=== PATIENT | female | born 1970 | race Caucasian/White ===

== ENCOUNTER 2016-04-05 09:02 | Emergency (ER) | payer OTHER ==
[2016-04-05 09:19] VITALS: BP 166/95; PULSE 85; RESP 18; TEMP 98; O2SAT 94
--- NOTE | 2016-04-05 09:30 | UCPHY ---
H & P Time Seen by Provider: 04/05/16 09:17 Patient Type: Established HPI/ROS: HPI Right ankle swelling, right groin pain. 45-year-old female by private vehicle. This patient reports that she has had discomfort in her right mid inguinal area since Sunday. She also reports that she noticed that her right ankle seemed more swollen compared to her left ankle this morning. There is no history of trauma. She is concerned about a blood clot in her right lower extremity. No other complaint. No history of coagulopathy. ROS: Constitutional: No fever, no chills. No weakness. Eyes: No discharge. No changes in vision. ENT: No sore throat. No nasal congestion or rhinorrhea. Respiratory: No cough. No shortness of breath. Cardiac: No chest pain, no palpitations. Gastrointestinal: No abdominal pain, no vomiting, no diarrhea. As above. Genitourinary: No hematuria. No dysuria or increased frequency with urination. Musculoskeletal: No back pain. No neck pain. No myalgias or arthralgias. As above. Skin: No rashes. Neurological: No headache. No focal weakness or altered sensation. Past medical history: Cholecystectomy, hypertension, tonsillectomy, heart murmur. Social history: Here by herself. Physical Exam: General Appearance: Alert, no distress. Obese habitus. This patient is responding to questions appropriately and in full sentences. This patient appears well-hydrated and well-nourished. Eyes: Pupils equal and round no pallor or injection. No lid edema, erythema or injection. Gastrointestinal: Abdomen is soft and nontender, no masses, bowel sounds normal. No focal tenderness at McBurney's point. No Hopkins sign. No adnexal tenderness. Mild and vague tenderness on palpation mid inguinal area under her pannus. No rash or skin breakdown associated. No masses or palpable hernia appreciated. No warmth, edema, ecchymosis, erythema noted involving this area. Neurological: Motor sensory function is grossly intact. Cranial nerves are normal. Gait is normal. Skin: Warm and dry, no rashes. Musculoskeletal: Neck is supple and nontender. Extremities are symmetrical. I could not appreciate any significant swelling in her right ankle relative to her left ankle. All joints range without pain or impingement. Psychiatric: No agitation. No depression. Database: EKG: Imaging: Right lower extremity ultrasound: Negative for DVT or other pathology. Results were discussed with staff radiologist Dr. Joe Merino. Procedures: Emergency department course: After my evaluation, she was sent for left right lower extremity ultrasound to evaluate for DVT. Urine sample was obtained. 10:45 a.m., patient re-evaluated. She was resting comfortably at this time. Results of her ultrasound were discussed with her. Results of her urinalysis was discussed. She has not had any urinary tract infection symptoms. I discussed sending her home with a prescription for Keflex. Which she could fill if she develops dysuria or fever. I feel that her inguinal area pain is likely musculoskeletal in etiology. I feel that her presentation and exam are not consistent with a hernia, ovarian pathology, appendicitis. She does feel comfortable going home and I feel she is safe for discharge. Follow-up and return to emergency department precautions reviewed. All of her questions were answered. She was discharged in good condition. Differential Diagnosis: The differential diagnosis on this patient includes but is not limited to swelling of right ankle. Right ankle fracture, subluxation, dislocation, right lower extremity DVT, appendicitis, incarcerated inguinal hernia, cellulitis, abscess, nephrolithiasis unlikely. This represents a partial list of diagnoses considered. These considerations are based on history, physical exam, past history, reassessment and diagnostic testing. Smoking Status: Former smoker Constitutional: Initial Vital Signs Temperature (C) 36.6 C 04/05/16 09:17 Heart Rate 85 04/05/16 09:17 Respiratory Rate 18 04/05/16 09:17 Blood Pressure 166/95 H 04/05/16 09:17 O2 Sat (%) 94 04/05/16 09:17 O2 Delivery Mode Room Air Allergies/Adverse Reactions: Penicillins Allergy (Verified 01/21/16 13:29) Home Medications: Medication Instructions Recorded Acetazolamide [Diamox Sequel 500mg] 500 mg PO BID 05/13/12 Citalopram [celeXA 20 MG (RX)] 20 mg 05/13/12 Lisinopril 01/21/16 Cephalexin [Keflex (*)] 500 mg PO Q6 5 Days 04/05/16 Diamox 04/05/16 Medical Decision Making - Data Points Laboratory Results: 04/05/16 09:30 Urine Color YELLOW Urine Appearance HAZY Urine pH 6.5 (5.0-7.5) Ur Specific [place] 1.010 (1.002-1.030) Urine Protein NEGATIVE (NEGATIVE) Urine Ketones NEGATIVE (NEGATIVE) Urine Blood 1+ H (NEGATIVE) Urine Nitrate NEGATIVE (NEGATIVE) Urine Bilirubin NEGATIVE (NEGATIVE) Urine Urobilinogen 0.2 EU EU (0.2-1.0) Ur Leukocyte Esterase NEGATIVE (NEGATIVE) Urine RBC 1-3 /hpf /hpf (0-3) Urine WBC 3-5 /hpf H /hpf (0-3) Ur Epithelial Cells 1+ /lpf /lpf (NONE-1+) Urine Bacteria 2+ /hpf H /hpf (NONE SEEN) Urine Mucus TRACE /lpf /lpf (NONE-1+) Ur Culture Indicated? INDICATED H (NI) Urine Glucose NEGATIVE (NEGATIVE) Departure - Departure Disposition: Home, Routine, Self-Care Clinical Impression: Right ankle swelling, Right groin pain Condition: Good Instructions: Groin Pain (ED), Swollen Ankle Joint (ED) Additional Instructions: Read and follow provided instructions. Follow-up with your primary care physician in 1-2 days for re-evaluation. Fill prescription for Keflex antibiotic if you develop symptoms of urinary tract infections such as increased frequency with urination, burning with urination, fever, back pain. Return to the emergency department for worsening pain, fever, shortness of breath or other serious concerns. Referrals: Ofe Benavides MD [Primary Care Provider] - As per Instructions Prescriptions: Cephalexin [Keflex (*)] 500 mg PO Q6 5 Days - PQRS PQRS Measurement: Not applicable.
[2016-04-05 09:36] LABS: COLOR YELLOW; LEUKOCYTE ESTERASE,URINE NEGATIVE (NEGATIVE); NITRITE,URINE NEGATIVE (NEGATIVE); PH,URINE 6.5 (5.0-7.5)
[2016-04-05 10:03] LABS: BACTERIA 2+ /hpf (NONE SEEN); MUCUS TRACE /lpf (NONE-1+)
== END 2016-04-05 11:03 | disposition home or self-care (01) ==
LOC: CED 09:02
DX: R10.9 Unspecified abdominal pain (principal); R22.41 Localized swelling, mass and lump, right lower limb; I10 Essential (primary) hypertension; R01.1 Cardiac murmur, unspecified
CPT/HCPCS: 81003-PO; 81015-PO; 93971-PO; 99214-PO; G0463-PO

== ENCOUNTER 2016-04-24 10:52 | Emergency (ER) | payer OTHER ==
[2016-04-24 11:15] VITALS: TEMP 98.2
--- NOTE | 2016-04-24 12:02 | UCPHY ---
H & P Time Seen by Provider: 04/24/16 12:01 Patient Type: Established HPI/ROS: Chief complaint. Abdominal pain HPI. 45-year-old female right upper quadrant abdominal pain for 7 days. It radiates around to the right back. She has had a cholecystectomy about a year and a half ago. She had a fatty meal last night with increased pain. Nausea last night. No fever. No urinary symptoms. She says it feels like her gallbladder problems previously ROS Constitutional. no fever/chills, no weakness Eyes. no problems with vision ENT. no sore throat, no nasal drainage Cardiovascular. no chest pain Respiratory. no shortness of breath, no cough Abdominal. Right upper quadrant abdominal pain with nausea last night . no problems urinating MS. no calf pain/swelling, no neck/back pain, no joint pain Skin. no rash Lymph. no swollen glands Neuro. no headache, no dizziness, no difficulty walking or with speech Past Medical/Surgical History: Past medical history is significant for heart murmur, hypertension, cholecystectomy, benign intracranial hypertension, depression Social History: , nonsmoker, no alcohol Smoking Status: Former smoker Physical Exam: General Appearance: Alert well-developed female mild distress vital signs are stay Eyes: Pupils equal and round no pallor or injection. ENT, Mouth: Mucous membranes are moist. Respiratory: There are no retractions, lungs are clear to auscultation. Cardiovascular: Regular rate and rhythm. Gastrointestinal: Abdomen is soft with tenderness in the right upper quadrant. No masses. Normal bowel sounds Neurological: Awake and alert, sensory and motor exams grossly normal. Skin: Warm and dry, no rashes. Musculoskeletal: Neck is supple nontender. Extremities symmetrical, full range of motion. Psychiatric: Patient is oriented X 3, there is no agitation. Constitutional: Initial Vital Signs Temperature (C) 36.8 C 04/24/16 11:11 Heart Rate 80 04/24/16 11:11 Respiratory Rate 20 04/24/16 11:11 Blood Pressure 178/84 H 04/24/16 11:11 O2 Sat (%) 96 04/24/16 11:11 O2 Delivery Mode Room Air Allergies/Adverse Reactions: Penicillins Allergy (Verified 04/24/16 11:09) Home Medications: Medication Instructions Recorded Acetazolamide [Diamox Sequel 500mg] 500 mg PO BID 05/13/12 Citalopram [celeXA 20 MG (RX)] 20 mg 05/13/12 Lisinopril 01/21/16 Diamox 04/05/16 oxyCODONE/APAP 5/325 [Percocet 1 tab PO Q4-6PRN PRN #14 tab 04/24/16 5/325] Medical Decision Making - Diagnostics Imaging: CT abdomen and pelvis with IV contrast reviewed by me and discussed with Dr. Rodríguez and interpreted as negative Procedures: IV normal saline ED Course/Re-evaluation: On re-evaluation patient is stable. Patient and I discussed imaging study results, laboratory evaluation, treatment plan including criteria for return importance of follow-up and further evaluation. Patient expresses understanding and agreement Differential Diagnosis: This possible the patient has of retained common bile duct stone after her cholecystectomy 1 and half years ago. I considered diverticulitis, appendicitis , pancreatitis as well. It is possible this may represent GERD however patient' s pain is really much more right upper quadrant and epigastric - Data Points Laboratory Results: Laboratory Results 04/24/16 12:26 04/24/16 12:26 04/24/16 04/24/16 04/24/16 12:26 12:26 12:26 WBC 8.14 10^3/uL 10^3/uL (3.80-9.50) RBC 4.42 10^6/uL 10^6/uL (4.18-5.33) Hgb 11.4 g/dL L g/dL (12.6-16.3) Hct 37.0 % L % (38.0-47.0) MCV 83.7 fL fL (81.5-99.8) MCH 25.8 pg L pg (27.9-34.1) MCHC 30.8 g/dL L g/dL (32.4-36.7) RDW 15.0 % % (11.5-15.2) Plt Count 361 10^3/uL 10^3/uL (150-400) MPV 9.5 fL fL (8.7-11.7) Neut % (Auto) 64.9 % % (39.3-74.2) Lymph % (Auto) 21.6 % % (15.0-45.0) [place] % (Auto) 6.0 % % (4.5-13.0) Eos % (Auto) 6.1 % % (0.6-7.6) Baso % (Auto) 0.7 % % (0.3-1.7) Nucleat RBC Rel Count 0.0 % % (0.0-0.2) Absolute Neuts (auto) 5.27 10^3/uL 10^3/uL (1.70-6.50) Absolute Lymphs (auto) 1.76 10^3/uL 10^3/uL (1.00-3.00) Absolute Monos (auto) 0.49 10^3/uL 10^3/uL (0.30-0.80) Absolute Eos (auto) 0.50 10^3/uL H 10^3/uL (0.03-0.40) Absolute Basos (auto) 0.06 10^3/uL 10^3/uL (0.02-0.10) Absolute Nucleated RBC 0.00 10^3/uL 10^3/uL (0-0.01) Immature Gran % 0.7 % % (0.0-1.1) Immature Gran # 0.06 10^3/uL 10^3/uL (0.00-0.10) Sodium 144 mEq/L mEq/L (134-144) Potassium 4.1 mEq/L mEq/L (3.5-5.2) Chloride 111 mEq/L H mEq/L (97-110) Carbon Dioxide 21 mEq/l L mEq/l (22-31) Anion Gap 12 mEq/L mEq/L (8-16) BUN 12 mg/dL mg/dL (7-23) Creatinine 0.8 mg/dL mg/dL (0.6-1.0) Estimated GFR > 60 Glucose 101 mg/dL H mg/dL (70-100) Calcium 9.0 mg/dL mg/dL (8.5-10.4) Total Bilirubin 0.5 mg/dL mg/dL (0.1-1.4) Conjugated Bilirubin 0.4 mg/dL mg/dL (0.0-0.5) Unconjugated Bilirubin 0.1 mg/dL mg/dL (0.0-1.1) AST 17 IU/L IU/L (14-46) ALT 32 IU/L IU/L (9-52) Alkaline Phosphatase 78 IU/L IU/L (38-126) Total Protein 6.7 g/dL g/dL (6.3-8.2) Albumin 3.6 g/dL g/dL (3.5-5.0) Lipase 42.0 IU/L IU/L (23-300) Beta HCG, Qual NEGATIVE Medications Given: Discontinued Medications Sodium Chloride (Ns) 1,000 mls @ 0 mls/hr IV ONCE ONE PRN Reason: Wide Open Stop: 04/24/16 12:12 Last Admin: 04/24/16 12:30 Dose: 1,000 mls Departure - Departure Disposition: Home, Routine, Self-Care Clinical Impression: Abdominal pain Qualifiers: Abdominal location: right upper quadrant Qualified Code(s): R10.11 - Right upper quadrant pain Condition: Good Instructions: Acute Abdominal Pain (ED) Additional Instructions: Return for worsening symptoms. Percocet as needed for pain. Easy diet. Further evaluation by your regular healthcare provider Referrals: Ofe Benavides MD [Primary Care Provider] - 2-3 days, if not improved Prescriptions: oxyCODONE/APAP 5/325 [Percocet 5/325] 1 tab PO Q4-6PRN PRN #14 tab PRN Reason: Pain, Moderate - PQRS PQRS Measurement: 134: Depression screening and followup, PRIME MD-PHQ2 (12 years and older) Over the last 2 weeks, how often have you been bothered by any of the following problems? 1. Feeling down, depressed, or hopeless? 2. Little interest or pleasure in doing things? Patient answered no to both 1 and 2 130: Documentation of medications. Reviewed all patient medications, doses, route and frequency. 226: Do you smoke? No.
[2016-04-24] MEDS ORDERED: NS 1,000 ML IV ONE (12:11)
[2016-04-24] MEDS ORDERED: IOPAMIDOL (ISOVUE-300) 100 ML BTL IV ONE (12:20)
[2016-04-24 12:34] LABS: % IMMATURE GRANULYOCYTES 0.7 % (0.0-1.1); ABSOLUTE IMMATURE GRANULOCYTES 0.06 10^3/uL (0.00-0.10); ADD DIFF? NO; ADD MORPH? NO; ADD SCAN? NO; ATYPICAL LYMPHOCYTE FLAG 0 (0-99); FRAGMENT RBC FLAG 0 (0-99); HEMOGLOBIN 11.4 g/dL (12.6-16.3); LEFT SHIFT FLG 0 (0-99); LIPEMIA HEMOLYSIS FLAG 80 (0-99); MEAN CELL HEMOGLOBIN 25.8 pg (27.9-34.1); MEAN CELL HEMOGLOBIN CONCENTR. 30.8 g/dL (32.4-36.7); MEAN CELL VOLUME 83.7 fL (81.5-99.8); MEAN PLATELET VOLUME 9.5 fL (8.7-11.7); PLATELET CLUMPS FLAG 0 (0-99); PLATELET COUNT 361 10^3/uL (150-400); RED BLOOD CELL COUNT 4.42 10^6/uL (4.18-5.33)
[2016-04-24 12:52] LABS: ALANINE AMINOTRANSFERASE 32 IU/L (9-52); ALBUMIN 3.6 g/dL (3.5-5.0); ALKALINE PHOSPHATASE 78 IU/L (38-126); ANION GAP 12 mEq/L (8-16); ASPARTATE AMINOTRANSFERASE 17 IU/L (14-46); BILIRUBIN,TOTAL 0.5 mg/dL (0.1-1.4); BILIRUBIN-CONJUGATED 0.4 mg/dL (0.0-0.5); BILIRUBIN-UNCONJUGATED 0.1 mg/dL (0.0-1.1); CARBON DIOXIDE 21 mEq/l (22-31); CHLORIDE 111 mEq/L (97-110); CREATININE 0.8 mg/dL (0.6-1.0); GLOMERULAR FILTRATION RATE > 60; GLUCOSE 101 mg/dL (70-100); POTASSIUM 4.1 mEq/L (3.5-5.2); SODIUM 144 mEq/L (134-144); TOTAL PROTEIN 6.7 g/dL (6.3-8.2)
[2016-04-24 13:59] VITALS: BP 131/79; PULSE 66; RESP 18; O2SAT 97
== END 2016-04-24 13:57 | disposition home or self-care (01) ==
LOC: CED 10:52
DX: R10.11 Right upper quadrant pain (principal)
CPT/HCPCS: 74177-PO; 80048-PO; 80076-PO; 83690-PO; 84703-PO; 85025-PO; 96360-PO; 99215-PO; G0463-PO; Q9967

== ENCOUNTER → 2016-11-18 | Outpatient (CLI) | payer OTHER | LOC: FIMAGING 07:45 | PROVIDERS: ATTEND Family Medicine | DX: Z12.31 Encounter for screening mammogram for malignant neoplasm of breast (principal) | CPT/HCPCS: G0202 ==

== ENCOUNTER → 2017-07-11 | Outpatient (CLI) | payer OTHER | LOC: FIMAGING 08:08 | PROVIDERS: ATTEND Physician Assistant Medical | DX: F45.8 Other somatoform disorders (principal); K44.9 Diaphragmatic hernia without obstruction or gangrene; K22.4 Dyskinesia of esophagus ==

== ENCOUNTER → 2018-05-02 | Outpatient (CLI) | payer OTHER | LOC: FIMAGING 12:40 | PROVIDERS: ATTEND Family Medicine | DX: Z12.31 Encounter for screening mammogram for malignant neoplasm of breast (principal); Z80.3 Family history of malignant neoplasm of breast ==